=== PATIENT | female | born 1965 | race African-American/Black ===

== ENCOUNTER 2022-02-04 15:45 | Emergency (ER) | payer BC ==
[~2022-02-04] VITALS: Ht 175.3 cm; Wt 58.5 kg
--- NOTE | 2022-02-04 16:00 | NUR ---
Recieved pt 57 yrs female from home c/o abdominale pain and flank pain started yesterday and goting worse early this morning
--- NOTE | 2022-02-04 16:30 | NUR ---
blood drow by nurse rn and sent to lab pt unable to void at this time
--- NOTE | 2022-02-04 16:44 | NUR ---
to CT SCAN of abdomin r/o kidney ston
[2022-02-04 16:45] LABS: BASOPHILS % (AUTO) 0.4 % (0.0-2.0); EOSINOPHILS % (AUTO) 0.6 % (0.0-6.0); HEMATOCRIT 41 % (33-45); HEMOGLOBIN 13.6 g/dL (11.5-14.8); LYMPHOCYTES # (AUTO) 1.4 K/uL (0.8-4.8); MEAN CORPUSCULAR HGB CONC 34 g/dl (31.0-36.0); MEAN CORPUSCULAR VOLUME 94 fL (82-100); MONOCYTES # (AUTO) 0.6 K/uL (0.1-1.30); MONOCYTES % (AUTO) 8.7 % (2.0-12.0); NEUTROPHILS # (AUTO) 4.4 K/uL (1.8-8.9); NEUTROPHILS % (AUTO) 68.3 % (43.0-81.0); PLATELET COUNT (AUTO) 199 K/uL (150-450); RED BLOOD CELL COUNT(AUTO) 4.33 MIL/uL (4.0-5.2); WHITE BLOOD COUNT (AUTO) 6.4 K/uL (4.3-11.0)
[2022-02-04] MEDS ORDERED: ONDANSETRON HCL/PF 4 MG/2 ML VIAL ONE (16:48)
[2022-02-04] MEDS ORDERED: KETOROLAC TROMETHAMINE 15 MG/ML VIAL ONE (16:48)
[2022-02-04] MEDS ORDERED: MORPHINE SULFATE INJ 4 MG/ML DISP.SYRIN ONE (16:51)
[2022-02-04] MEDS ORDERED: ONDANSETRON HCL/PF 4 MG/2 ML VIAL IVP ONE (17:00)
[2022-02-04] MEDS ORDERED: KETOROLAC TROMETHAMINE INJ 30 MG/ML VIAL IV ONE (17:00)
[2022-02-04] MEDS ORDERED: MORPHINE SULFATE INJ 2 MG/ML DISP.SYRIN IV ONE (17:00)
[2022-02-04] MEDS ORDERED: IV NS 0.9% 1,000 ML BAG IV ONE (17:00)
--- NOTE | 2022-02-04 17:00 | NUR ---
inserted ango cath # 18 on rt arm ivf infused and patent mediction given as order
[2022-02-04] MEDS ORDERED: MONT10TA22 PO (17:01)
[2022-02-04] MEDS ORDERED: CHLO25TA2 PO (17:01)
[2022-02-04] MEDS ORDERED: ANAS1TAB50 PO (17:01)
[2022-02-04 17:16] LABS: CALCIUM, SERUM 8.9 mg/dL (8.5-10.1); CREATININE 0.8 mg/dL (0.6-1.3); POTASSIUM 3.6 mmol/L (3.5-5.1)
--- NOTE | 2022-02-04 17:19 | NUR ---
resting at this time pain reduced and contloded
[2022-02-04 17:22] LABS: ALBUMIN 3.8 g/dL (3.4-5.0); BILIRUBIN,DIRECT 0.2 mg/dL (0.0-0.2); BILIRUBIN,TOTAL 0.9 mg/dL (0.2-1.0); TOTAL PROTEIN, SERUM 7.1 g/dL (6.4-8.2)
[2022-02-04] MEDS ORDERED: IBUP-1957 PO (17:52)
[2022-02-04] MEDS ORDERED: OXYC-128 PO (17:52)
[2022-02-04] MEDS ORDERED: ONDA4TAB5 PO (17:52)
--- NOTE | 2022-02-04 18:00 | NUR ---
UA SEND TO LAB
--- NOTE | 2022-02-04 18:06 | NUR ---
D/C INSTRACTION given to pt fully and verblized understood d/c home with rx dineses any pain
[2022-02-04 18:22] VITALS: BP 111/72
[2022-02-04 18:40] LABS: BILIRUBIN,URINE NEGATIVE (NEGATIVE); COLOR,URINE YELLOW (YELLOW); LEUKOCYTE ESTERASE ,URINE NEGATIVE (NEGATIVE); NITRITE, URINE NEGATIVE (NEGATIVE); PROTEIN,URINE NEGATIVE (NEGATIVE); UGLUCOSE NEGATIVE (NEGATIVE); UROBILINOGEN,URINE 0.2 EU/dL (0.2)
[2022-02-04 18:49] LABS: BACTERIA,URINE None seen /HPF (None Seen); MUCUS,URINE Few /LPF (None Seen); SQUAMOUS EPITHELIAL CELL,UR 0-2 /HPF (None Seen); WBC,URINE 0-2 /HPF (0-3)
== END 2022-02-04 19:00 | disposition home or self-care (01) ==
LOC: ER 15:54
DX: R11.2 Nausea with vomiting, unspecified (principal); R10.31 Right lower quadrant pain; M54.50 Low back pain, unspecified; Z98.890 Other specified postprocedural states; Z79.899 Other long term (current) drug therapy
CPT/HCPCS: 36415; 74176; 80048; 80076; 81001; 83690; 85025; 87086; 96361; 96374; 96375; 99284; J1885; J2270; J2405; J7030